=== PATIENT | male | born 1990 | race Two or more races ===

== ENCOUNTER 2020-11-26 04:55 | Day surgery (SDC) | payer OTHER ==
[~2020-11-26 04:55] MED LIST: COZAAR50 MG PO
== END 2020-11-26 14:15 | disposition home or self-care (01) ==
LOC: CIR.AMB 04:55
PROVIDERS: ATTEND Specialist
DX: K40.90 Unilateral inguinal hernia, without obstruction or gangrene, not specified as recurrent (principal); D17.6 Benign lipomatous neoplasm of spermatic cord; Z20.822 Contact with and (suspected) exposure to COVID-19